=== PATIENT | male | born 1960 | race Caucasian/White ===

== ENCOUNTER 2019-04-25 12:22 | Outpatient (CLI) | payer MEDICARE, SELFPAY | END 2019-04-25 12:23 | disposition home or self-care (01) | LOC: CHSLAB 12:27 | PROVIDERS: Visit Provider Internal Medicine Hematology & Oncology | DX: D69.59 Other secondary thrombocytopenia (principal); C13.9 Malignant neoplasm of hypopharynx, unspecified; T45.1X5A Adverse effect of antineoplastic and immunosuppressive drugs, initial encounter | CPT/HCPCS: 36415; 85049; 85055; 86900; 86901 ==

== ENCOUNTER 2019-07-11 08:42 | Outpatient (CLI) | payer MEDICARE, SELFPAY ==
[2019-07-11 09:10] VITALS: BP 128/63; PULSE 80; RESP 14; TEMP 36.8; O2SAT 98
[2019-07-11 10:10] VITALS: BP 124/70; PULSE 78; RESP 16; TEMP 36.7; O2SAT 97
--- NOTE | 2019-07-11 10:29 | PC.NURSE ---
PATIENT HERE FOR CYCLE 1 OF NIVOLUMAB CHEMO. ALL TEACHING GIVEN. ALL QUESTIONS ANSWERED. NIVOLUMAB CHEMO ADMINISTERED. SEE MAR. PATIENT TOLERATED CHEMO WELL. SAFE EXIT OF HOSPITAL.
== END 2019-07-11 08:43 | disposition home or self-care (01) ==
LOC: CHSTREATRM 08:46
PROVIDERS: PCP Family Medicine; Visit Provider Internal Medicine Hematology & Oncology
DX: C13.9 Malignant neoplasm of hypopharynx, unspecified (principal)
CPT/HCPCS: 96413; J9299

== ENCOUNTER 2019-08-12 12:26 | Outpatient (CLI) | payer MEDICARE, SELFPAY ==
[2019-08-12 13:15] VITALS: BP 116/82; PULSE 54; RESP 20; TEMP 37.1; O2SAT 95
--- NOTE | 2019-08-12 14:00 | PC.NURSE ---
Pt discharged to home with spouse without complaints or concerns.
== END 2019-08-12 12:27 | disposition home or self-care (01) ==
LOC: CHSTREATRM 12:31
PROVIDERS: PCP Family Medicine; Visit Provider Internal Medicine Hematology & Oncology
DX: Z51.11 Encounter for antineoplastic chemotherapy (principal); C13.9 Malignant neoplasm of hypopharynx, unspecified
CPT/HCPCS: 96413; J9299